=== PATIENT | male | born 1995 | race Caucasian/White ===

== ENCOUNTER 2020-04-23 17:44 | Emergency (ER) | payer OTHER, SELFPAY ==
[2020-04-23 17:50] VITALS: BP 132/78; PULSE 86; RESP 18; TEMP 36.7; O2SAT 98
--- NOTE | 2020-04-23 18:01 | PC.NURSE ---
patient lives in [facility]. recently got dumped by his girlfriend and got into his car to drive and blow off steam . patients family contacted him by phone and patient was said to have made statements verbalizing thoughts of self harm and they contacted police to track patients cell phone. patient was picked up in the parking lot of a local hotel and was transported to [facility] by [facility]. upon arrival to er patient denies thoughts of self harm stating he just feels overwhelmed and is upset about the break up. states he feels bad about wasting everyones time and using resources that he doesnt need. denies psych history.
--- NOTE | 2020-04-23 18:45 | ED.GENADULT ---
HPI - General Adult General Chief complaint: Psychiatric Symptoms <Mando Smart PA-C - Last Filed: 04/23/20 21:37> Stated complaint: suicidal thoughts <Mando Smart PA-C - Last Filed: 04/23/20 21:37> Time Seen by Provider: 04/23/20 18:16 <Mando Smart PA-C - Last Filed: 04/23/20 21:37> Source: patient <Mando Smart PA-C - Last Filed: 04/23/20 21:37> Mode of arrival: EMS <Mando Smart PA-C - Last Filed: 04/23/20 21:37> Limitations: no limitations <Mando Smart PA-C - Last Filed: 04/23/20 21:37> History of Present Illness HPI narrative: Patient is a 24-year-old male who presents to emergency department for evaluation of having made statements of wanting it all to and after breaking up with his fianc?e patient is currently living at home with family and had made the statements and went for a car ride in order to de-escalate patient's family reported his comments patient notes that on arrival he was she would not of made the comments and was upset at the moment but had no desire or thoughts of truly harming himself or others nor does he have a history of doing so. Patient on arrival is resting comfortably in the room denying any suicidal or homicidal ideation and notes that he has been stressed out given the break-up with his girlfriend that he has been with for over the last 3 years and was engaged to <Mando Smart PA-C - Last Filed: 04/23/20 21:37> Related Data Home medications: Home Medications Medication Instructions Recorded Confirmed Unable to Obtain Home Medications 04/23/20 04/23/20 <Mando Smart PA-C - Last Filed: 04/23/20 21:37> Review of Systems Review of Systems: All systems reviewed & are unremarkable except as noted in HPI and below <Mando Smart PA-C - Last Filed: 04/23/20 21:37> COUNT INCLUDES THE [facility] Social History Social History: Social History (Updated 04/23/20 @ 18:47 by Mando Smart PA-C) Smokeless tobacco user: chewing tobacco <Mando Smart PA-C - Last Filed: 04/23/20 21:37> Exam Narrative: Exam Narrative: GENERAL: Well-appearing, well-nourished, and in no acute distress. HEAD: Normocephalic, atraumatic. EYES: PERRLA and EOMI. ENT: Nares clear, no rhinorrhea or epistaxis. Mucous membranes moist. CHEST: Clear to auscultation. No respiratory distress. No wheezes rales or rhonchi HEART: Regular rate and rhythm. No murmur heard. EXTREMITIES: Normal range of motion. No edema. SKIN: Warm, dry, no rash. NEURO: No focal deficits. Alert and oriented x3. PSYCH: Normal mood and affect. <SAHRA Mcpherson Last Filed: 04/23/20 21:37> Course Course Emergency Course: Patient in the room at this time crisis myself and family have discussed with the patient individually and with them present the case elements patient is felt safe to be discharged home with safety contract and myself and crisis feel comfortable with this as well as family and the patient <SAHRA Mcpherson Last Filed: 04/23/20 21:37> Vital Signs Vital signs: Vital Signs Temperature 98.0 F 04/23/20 17:50 Pulse Rate 86 04/23/20 17:50 Respiratory Rate 18 04/23/20 17:50 Blood Pressure 132/78 04/23/20 17:50 Pulse Oximetry 98 04/23/20 17:50 Temperature 98.0 F 04/23/20 17:50 Pulse Rate 80 04/23/20 21:51 Respiratory Rate 20 04/23/20 21:51 Blood Pressure 122/78 04/23/20 21:51 Pulse Oximetry 99 04/23/20 21:51 <SAHRA Mcpherson Last Filed: 04/23/20 21:37> Vital Signs Temperature 98.0 F 04/23/20 17:50 Pulse Rate 86 04/23/20 17:50 Respiratory Rate 18 04/23/20 17:50 Blood Pressure 132/78 04/23/20 17:50 Pulse Oximetry 98 04/23/20 17:50 Temperature 98.0 F 04/23/20 17:50 Pulse Rate 80 04/23/20 21:51 Respiratory Rate 20 04/23/20 21:51 Blood Pressure 122/78 04/23/20 21:51 Pulse Oximetry 99 04/23/20 21:51 <Kat Guillermo MD - Last Filed:
[2020-04-23 18:59] LABS: Basophils Absolute Auto 0.1 K/mm3 (0.0-0.1); Basophils Percent Auto 0.6 % (0.2-1.2); Eosinophils Absolute Auto 0.3 K/mm3 (0-0.3); Eosinophils Percent Auto 2.4 % (0-4.4); Hematocrit 44.3 % (42.0-52.0); Hemoglobin 14.8 g/dL (14.0-18.0); Immature Granulocyte Absolute 0.04 K/mm3 (0.00-0.031); Immature Granulocyte Percent A 0.4 % (0-0.5); Lymphocytes Absolute Auto 1.98 K/mm3 (0.9-3.2); Lymphocytes Percent Auto 18.6 % (18.3-44.2); Mean Corpuscular HGB Conc 33.4 g/dl (32-36); Mean Corpuscular Hemoglobin 29.1 pg (26-34); Mean Corpuscular Volume 87.2 fl (80-100); Mean Platelet Volume 10.4 fl (7.4-10.4); Monocytes Absolute Auto 0.7 K/mm3 (0.1-0.6); Monocytes Percent Auto 6.6 % (2.6-8.5); Neutrophils Absolute Auto 7.6 K/mm3 (1.3-6.7); Neutrophils Percent Auto 71.4 % (45.5-73.1); Platelet Count Result 367 k/mm3 (150-375); Red Blood Count 5.08 M/mm3 (4.6-6.20); Red Cell Distribution Width 13.3 % (11.5-14.5); White Blood Count 10.6 K/mm3 (4.5-10.0)
[2020-04-23 19:12] LABS: Ethanol < 10 mg/dL (<10)
[2020-04-23 19:13] LABS: Acetaminophen < 10 ug/mL (10-30); Salicylate < 1.0 mg/dL (2-20)
[2020-04-23 19:14] LABS: Alanine Aminotransferase 33 U/L (4-50); Alkaline Phosphatase 72 U/L (38-126); Anion Gap 12 mmol/L (8-16); Aspartate Amino Transferase 26 U/L (17-59); Bilirubin,Total 0.8 mg/dL (0.2-1.3); Blood Urea Nitrogen 8 mg/dL (9-20); Calcium 9.8 mg/dL (8.4-10.2); Carbon Dioxide 24 mmol/L (22-30); Chloride 103 mmol/L (98-107); Estimated CRCL calculation 174 ml/min; Estimated Glomerular Filt Rate > 60; Glucose 88 mg/dL (75-110); Potassium 3.8 mmol/L (3.4-5.0); Sodium 139 mmol/L (137-145)
[2020-04-23 19:16] LABS: Add Urine Microscopic? NO; Appearance Urine Clear (Clear); Bilirubin Urine Negative (Negative); Blood Urine Negative (Negative); Color Urine Colorless (Yellow); Glucose Urine UA Negative (Negative); Ketones Urine Negative (Negative); Leukocyte Esterase Ur Negative LEU/UL (Negative); Nitrate Urine Negative (Negative); Protein Urine Negative (Negative); Urobilinogen Urine Negative mg/dL (<2.0)
[2020-04-23 19:18] LABS: Specific Grav Ur 1.003 (1.001-1.035)
[2020-04-23 19:32] LABS: Amphetamine Screen Urine Negative (Negative); Barbiturate Screen Urine Negative (Negative); Benzodiazepines Screen Urine Negative (Negative); Cannabinoid Screen Urine Negative (Negative); Cocaine Screen Urine Negative (Negative); Methadone Screen Urine Negative (Negative); Opiate Screen Urine Negative (Negative); Phencyclidine Screen Urine Negative (Negative)
--- NOTE | 2020-04-23 19:38 | PC.NURSE ---
Spoke with Crisis for eval
--- NOTE | 2020-04-23 21:25 | PC.NURSE ---
[facility] here to see patient
[2020-04-23 21:51] VITALS: BP 122/78; PULSE 80; RESP 20; O2SAT 99
== END 2020-04-23 21:54 | disposition home or self-care (01) ==
PROVIDERS: Emergency Medicine; Emergency Provider Emergency Medicine
DX: F32.9 Major depressive disorder, single episode, unspecified (principal)
CPT/HCPCS: 36415; 80053; 80307; 81003; 84443; 85025; 99284